=== PATIENT | male | born 1980 | race Caucasian/White ===

== ENCOUNTER 2022-07-29 15:47 | Emergency (ER) | payer OTHER, SELFPAY | END 2022-07-29 17:24 | disposition home or self-care (01) | PROVIDERS: Emergency Provider Nurse Practitioner Family | DX: H66.91 Otitis media, unspecified, right ear (principal) | CPT/HCPCS: 99213; G0463 ==

== ENCOUNTER 2022-09-10 15:31 | Emergency (ER) | payer OTHER, SELFPAY ==
[2022-09-10 15:43] VITALS: BP 153/100; PULSE 68; RESP 18; TEMP 36.2; O2SAT 100
--- NOTE | 2022-09-10 16:10 | ED.URI ---
HPI - URI/Sore Throat General Chief Complaint: Upper Respiratory Infection Stated Complaint: Runny Nose,Sore Throat,Body Aches and Chills Time Seen by Provider: 09/10/22 15:59 Source: patient and RN notes reviewed Mode of arrival: ambulatory Limitations: no limitations History of Present Illness HPI Narrative: Patient presents today complaining of sore throat, cough, fatigue, sweats, chills, rhinorrhea, body aches since yesterday. He has not tried any [id number] medication for symptoms prior to arrival. Denies chest pain or shortness of breath. He currently rates his pain 5/10 Related Data Home Medications Medication Instructions Recorded Confirmed No Home Medications 09/10/22 09/10/22 Allergies Allergy/AdvReac Type Severity Reaction Status Date / Time No Known Allergies Allergy Verified 09/10/22 15:33 Review of Systems Review of Systems: CONSTITUTIONAL: Denies fever. + fatigue, chills, sweats, body aches EYES: Denies visual changes, redness, or discharge. ENT: Denies otalgia.+ congestion, rhinorrhea, sore throat CARDIOVASCULAR: Denies chest pain, palpitations, or edema. RESPIRATORY: Denies dyspnea.+ cough GASTROINTESTINAL: Denies abdominal pain, nausea, vomiting, or diarrhea. GENITOURINARY: Denies dysuria or hematuria. SKIN: Denies rash, itching, or wounds. MUSCULOSKELETAL: Denies back pain, joint pain, or myalgia. NEUROLOGIC: Denies headache, numbness, tingling, or weakness. PSYCH: Denies depression or anxiety. PMFSH Comments At time of signature, I have reviewed and agree with nursing past medical, surgical, social and family history unless otherwise noted. Please see nursing chart for further information. There is no relevant family history pertinent to the presenting complaint Exam Narrative: GENERAL: Well-appearing, well-nourished, and in no acute distress. HEAD: Normocephalic, atraumatic. EYES: EOMI. No redness or drainage. Conjunctivae normal. ENT: Mucous membranes pink and moist. Nares congested with rhinorrhea. TMs normal bilaterally. Throat normal. Uvula midline. NECK: Normal AROM. Supple. No lymphadenopathy. CHEST: No respiratory distress. Clear to auscultation. HEART: Regular rate and rhythm. No murmur appreciated. Normal peripheral pulses. EXTREMITIES: Normal range of motion. No edema. SKIN: Warm, dry, no rash. Capillary refill normal. Normal skin turgor. NEURO: No focal deficits. Alert and oriented x3. Gait steady. PSYCH: Normal affect. No signs of depression or anxiety. Course Course Level of Care: Express Care Visit Vital Signs Vital signs: Vital Signs Temperature 97.2 F L 09/10/22 15:43 Pulse Rate 68 09/10/22 15:43 Respiratory Rate 18 09/10/22 15:43 Blood Pressure 153/100 H 09/10/22 15:43 Pulse Oximetry 100 09/10/22 15:43 Oxygen Delivery Room Air 09/10/22 15:43 Temperature 97.2 F L 09/10/22 15:43 Pulse Rate 68 09/10/22 15:43 Respiratory Rate 18 09/10/22 15:43 Blood Pressure 153/100 H 09/10/22 15:43 Pulse Oximetry 100 09/10/22 15:43 Oxygen Delivery Room Air 09/10/22 15:43 Reviewed. Pt has been instructed to follow up with his PCP regarding his elevated blood pressure today. MDM - URI/Sore Throat MDM Narrative Medical decision making narrative: Rapid strep negative. Culture pending. Symptoms likely viral in etiology. No prescription medications indicated at this time. Anticipatory guidance given. Differential Diagnosis Differential diagnosis: Likely upper respiratory infection, sinusitis, viral infection, pharyngitis and other (Strep throat) Lab Data Attestation: I reviewed the patient's lab results. Labs: Strep Screen Presumptive Negative *(Reference Range: Negative)* Critical Care Time Critical Care Time Critical Care Time: No Discharge Plan Discharge Clinical Impression: Upper respiratory infection Qualifiers: URI type: unspec
== END 2022-09-10 16:16 | disposition home or self-care (01) ==
PROVIDERS: Emergency Provider Nurse Practitioner
DX: J06.9 Acute upper respiratory infection, unspecified (principal)
CPT/HCPCS: 87081; 87880; 99203; G0463

== ENCOUNTER 2023-09-23 11:42 | Emergency (ER) | payer OTHER, SELFPAY ==
[2023-09-23 11:53] VITALS: BP 138/96; PULSE 86; RESP 18; TEMP 36.7; O2SAT 100
--- NOTE | 2023-09-23 12:13 | ED.URI ---
HPI - URI/Sore Throat General Chief Complaint: Upper Respiratory Infection Stated Complaint: Fever, Body Aches, Neck and Throat Pain Time Seen by Provider: 09/23/23 12:10 Source: patient, RN notes reviewed and old records reviewed Mode of arrival: ambulatory Limitations: no limitations History of Present Illness HPI Narrative: 42-year-old male who presents to [facility] with complaints of fever, body aches, sore throat, headache, and neck pain and fatigue since Thursday of this week. Patient reports that he has been taking Tylenol for his fevers. Patient reports that his throat is very sore especially when swallowing. Patient reports no known ill contacts. MD elicited complaint: fever, sore throat and other (body ache) Onset (ago): day(s) (2 days ago.) Pain scale (0-10): 5 Treatments prior to arrival: acetaminophen Related Data Allergies Allergy/AdvReac Type Severity Reaction Status Date / Time No Known Allergies Allergy Verified 09/24/23 08:03 Review of Systems Review of Systems: CONSTITUTIONAL:Reports malaise, chills, sweats, or fever. EYES: Denies visual changes, redness, or discharge. ENT: Reports rhinorrhea, congestion,no sinus pain, no otalgia and positive for sore throat. CARDIOVASCULAR: Denies chest pain, palpitations, or edema. RESPIRATORY: Reports no cough.? Denies dyspnea. GASTROINTESTINAL: Denies abdominal pain, nausea, vomiting, diarrhea SKIN: Denies rash or itching. MUSCULOSKELETAL: Denies myalgia. NEUROLOGIC: Reports headache. All systems reviewed & are unremarkable except as noted in HPI and below PMFSH Past Medical History Medical History No active medical problems Social History Social History Smoking status: Never smoker Comments At time of signature, agree with nursing past medical, surgical, social and family history. There is no relevant family history pertinent to the presenting complaint Exam Narrative: GENERAL: Well-appearing, well-nourished, and in no acute distress. HEAD: Normocephalic EYES: PERRLA, conjunctivae clear ENT: Nares clear, turbinates edematous and erythematous, scant clear discharge. Mucous membranes moist. TM pearly lopez with dull light reflex bilaterally; no tragal tenderness. Oropharynx erythematous without lesions. Tonsils not enlarged and some white exudate noted , no drooling, no hoarseness, no trismus, uvula midline. NECK: Supple. No lymphadenopathy CHEST: Clear to auscultation, breath sounds equal. No wheezing, rhonchi, rales, or stridor. No respiratory distress, speaks in full sentences SAO2 100% on room air. HEART: Regular rate and rhythm. No murmur heard. SKIN: Warm, dry, no rash. NEURO: Alert and oriented x3. PSYCH: Normal mood and affect, anxious Course Course Emergency Course: Patient is aware of diagnosis, understands and agrees to treatment plan.? Anticipatory guidance given.? Patient agrees to follow-up as directed and is aware of reasons to seek care at the emergency department. Portions of this record may have been created with voice recognition software Level of Care: Express Care Visit Vital Signs Vital signs: Vital Signs Temperature 36.7 C 09/23/23 11:53 Pulse Rate 86 09/23/23 11:53 Respiratory Rate 18 09/23/23 11:53 Blood Pressure 138/96 H 09/23/23 11:53 Pulse Oximetry 100 09/23/23 11:53 Oxygen Delivery Room Air 09/23/23 11:53 Temperature 36.7 C 09/23/23 11:53 Pulse Rate 86 09/23/23 11:53 Respiratory Rate 18 09/23/23 11:53 Blood Pressure 138/96 H 09/23/23 11:53 Pulse Oximetry 100 09/23/23 11:53 Oxygen Delivery Room Air 09/23/23 11:53 Reviewed MDM - URI/Sore Throat MDM Narrative Medical decision making narrative: Differential diagnosis considered: Barnes virus, strep pharyngitis, allergic rhinitis, upper respiratory tract infection, sinusitis,
[2023-09-23 12:17] LABS: EDSTREPNEGPOS1 Presumptive Negative
[2023-09-23 12:34] LABS: EDINFLUASCREEN Negative; EDINFLUBSCREEN Negative
== END 2023-09-23 12:45 | disposition home or self-care (01) ==
PROVIDERS: Emergency Provider Registered Nurse; PCP Emergency Medicine
DX: J03.90 Acute tonsillitis, unspecified (principal); Z20.822 Contact with and (suspected) exposure to COVID-19
CPT/HCPCS: 87081; 87426; 87804; 87880; 99213; G0463

== ENCOUNTER 2023-09-24 08:03 | Emergency (ER) | payer OTHER, SELFPAY ==
--- NOTE | ~2023-09-24 | XR_ITS ---
EXAMINATION: XR chest 2V DATE: 09/24/2023 09:43 INDICATION: Fever. Abdominal pain. TECHNIQUE: Frontal and lateral views of the chest were obtained. COMPARISON: None. FINDINGS: There is no pneumonia, pleural effusion, or pneumothorax. The heart size is normal. IMPRESSION: 1. No acute cardiopulmonary disease. Reviewed, dictated and finalized at location E.
[2023-09-24 08:10] VITALS: BP 128/96; PULSE 105; RESP 14; TEMP 37.6; O2SAT 97
[2023-09-24 08:53] LABS: Strep Group A RT-PCR NOT DETECTED (Negative)
[2023-09-24 09:04] LABS: Influenza A QL RT-PCR Negative (Negative); Influenza B QL RT-PCR Negative (Negative); RSV RNA, RT-PCR Negative (Negative); SARS-CoV-2 RNA PCR Negative (Negative)
--- NOTE | 2023-09-24 09:29 | ED.FEVER ---
HPI - Fever General Chief Complaint: Fever Stated Complaint: been really sick since Thursday Time Seen by Provider: 09/24/23 09:08 Source: patient Mode of arrival: ambulatory Limitations: no limitations History of Present Illness HPI Narrative: This is a 42 year old male that presents to the ER for fevers. Reports associated malaise, sore throat, rash. He was seen at Urgent care yesterday and started on Amoxicillin for tonsillitis. Denies cough, abdominal pain, vomiting, diarrhea, dysuria or hematuria. Related Data Allergies Allergy/AdvReac Type Severity Reaction Status Date / Time No Known Allergies Allergy Verified 09/24/23 08:03 Review of Systems Review of Systems: CONSTITUTIONAL: Reports fever ENT: Reports sore throat. Denies otalgia. RESPIRATORY: Denies cough or dyspnea. GASTROINTESTINAL: Denies abdominal pain, nausea, vomiting, or diarrhea. GENITOURINARY: Denies dysuria or hematuria. SKIN: Reports rash. Denies itching. All systems reviewed & are unremarkable except as noted in HPI and below PMFSH Past Medical History Medical History (Updated 09/24/23 @ 11:38 by Karie Pearson PA-C) No active medical problems Social History Social History (Updated 09/24/23 @ 09:33 by Karie Pearson PA-C) Smoking status: Never smoker Exam Narrative: GENERAL: Well-appearing, well-nourished, and in no acute distress. HEAD: Normocephalic, atraumatic. EYES: PERRLA and EOMI. ENT: Nares clear, no rhinorrhea or epistaxis. Mucous membranes moist. Oropharynx with erythema, without tonsillar hypertrophy or exudate. Bilateral TMs pearly lopez non-bulging NECK: Supple. No adenopathy or masses. CHEST: Clear to auscultation. No respiratory distress. No wheezes rales or rhonchi HEART: Regular rate and rhythm. No murmur heard. Normal peripheral pulses. ABDOMEN: Soft, nontender, nondistended, normal active bowel sounds. EXTREMITIES: Normal range of motion. No edema. SKIN: Warm, dry. Red, papular rash present on the upper extremities chest and back NEURO: No focal deficits. Alert and oriented x3. PSYCH: Normal mood and affect Course Vital Signs Vital signs: Vital Signs Temperature 99.6 F 09/24/23 08:10 Pulse Rate 105 H 09/24/23 08:10 Respiratory Rate 14 09/24/23 08:10 Blood Pressure 128/96 H 09/24/23 08:10 Pulse Oximetry 97 09/24/23 08:10 Oxygen Delivery Room Air 09/24/23 08:10 Temperature 98.7 F 09/24/23 12:00 Pulse Rate 70 09/24/23 12:00 Respiratory Rate 15 09/24/23 12:00 Blood Pressure 125/86 09/24/23 12:00 Pulse Oximetry 98 09/24/23 12:00 Oxygen Delivery Room Air 09/24/23 08:10 MDM - Fever MDM Narrative Medical decision making narrative: Patient presents to the emergency department for viral symptoms ongoing over the last 3 days. Reporting fevers, sore throat, rash. Was started on amoxicillin yesterday with worsening of his rash. He is afebrile in the ER and nontoxic appearing. Mildly tachycardic upon arrival, this normalized without intervention. CBC without concerning findings. Metabolic panel with mild transaminitis. Lipase is not elevated. Urine without evidence of infection. Influenza, RSV, COVID, strep screens are negative. His mono screen was also negative. Spoke with patient about how symptoms and blood work appear consistent with mono, but may be his negative test is just due to early illness. He was instructed on further care of likely viral infection. He is to follow up with primary provider. He was given warnings to return to the ER Differential Diagnosis Differential diagnosis: Likely cellulitis, fever of unknown origin, community acquired pneumonia, viral infection, sepsis, influenza and other ( UTI, strep, mono) Lab Data Attestation: I reviewed the patient's lab results. 09/24/23 10:15 09/24/23 10:15 Labs: Lab Results 09/24/23 09/24/23 09/24/23 Range/Units 08:21 10:15 10:49 WBC 5.9 (4.5-10.0) K/mm3 RB
[2023-09-24] MEDS: ACETAMINOPHEN 500 MG TABLET 1000 MG PO (09:43)
[2023-09-24 09:44] VITALS: BP 130/84; PULSE 85; RESP 15; O2SAT 97
[2023-09-24 10:21] LABS: Basophils Percent Auto 0.3 % (0.2-1.2); Eosinophils Percent Auto 0.2 % (0-4.4); Hematocrit 44.3 % (42.0-52.0); Hemoglobin 15.6 g/dL (14.0-18.0); Immature Granulocyte Absolute 0.02 K/mm3 (0.00-0.031); Immature Granulocyte Percent A 0.3 % (0-0.5); Lymphocytes Percent Auto 20.2 % (18.3-44.2); Mean Corpuscular HGB Conc 35.2 g/dl (32-36); Mean Corpuscular Hemoglobin 31.8 pg (26-34); Mean Corpuscular Volume 90.4 fl (80-100); Mean Platelet Volume 9.4 fl (7.4-10.4); Monocytes Absolute Auto 0.9 K/mm3 (0.1-0.6); Monocytes Percent Auto 14.3 % (2.6-8.5); Neutrophils Absolute Auto 3.8 K/mm3 (1.3-6.7); Neutrophils Percent Auto 64.7 % (45.5-73.1); Platelet Count Result 199 k/mm3 (150-375); Red Cell Distribution Width 11.9 % (11.5-14.5); White Blood Count 5.9 K/mm3 (4.5-10.0)
[2023-09-24 10:32] LABS: Alanine Aminotransferase 109 U/L (6-50); Albumin Level 4.7 g/dL (3.5-5.1); Alkaline Phosphatase 95 U/L (38-126); Anion Gap 10 mmol/L (4-12); Aspartate Amino Transferase 66 U/L (17-59); Bilirubin,Total 0.7 mg/dL (0.2-1.3); Blood Urea Nitrogen 6 mg/dL (9-20); Carbon Dioxide 27 mmol/L (22-30); Chloride 99 mmol/L (98-107); Estimated CRCL calculation 83 ml/min; Estimated Glomerular Filt Rate > 60; Glucose 121 mg/dL (65-110); Sodium 136 mmol/L (137-145)
[2023-09-24 10:49] LABS: Monoscreen Negative (Negative); Negative Monotest Control Negative (Negative); Positive Monotest Control Positive (Positive)
[2023-09-24 11:03] LABS: Appearance Urine Clear (Clear); Bacteria Urine None Seen /hpf; Bilirubin Urine Negative (Negative); Blood Urine Negative (Negative); Color Urine Yellow (Yellow); Glucose Urine UA 1+ mg/dL (Negative); Ketones Urine Trace mg/dL (Negative); Leukocyte Esterase Ur Negative LEU/UL (Negative); Nitrate Urine Negative (Negative); Non Pathogenic Casts 0-2; Protein Urine 2+ mg/dL (Negative); Specific Grav Ur 1.017 (1.001-1.035); Squamous Epithelial Cell Urine None Seen /hpf (Few); WBC Urine 0-5 /hpf (0-3); pH Urine 6.5 (5.0-9.0)
[2023-09-24 11:06] LABS: Lipase 69 U/L (23-300)
[2023-09-24 11:11] LABS: Add Urine Microscopic? YES
[2023-09-24 11:26] VITALS: BP 124/85; PULSE 73; RESP 14; O2SAT 98
[2023-09-24 12:00] VITALS: BP 125/86; PULSE 70; RESP 15; TEMP 37.1; O2SAT 98
== END 2023-09-24 12:00 | disposition home or self-care (01) ==
PROVIDERS: Emergency Medicine; Emergency Provider Physician Assistant; PCP Emergency Medicine
DX: B34.9 Viral infection, unspecified (principal); Z20.822 Contact with and (suspected) exposure to COVID-19
CPT/HCPCS: 36415; 71046; 80053; 81001; 83690; 85025; 86308; 87637; 87651; 99283; A9270